=== PATIENT | female | born 1975 | race Caucasian/White ===

== ENCOUNTER 2020-01-20 13:48 | Outpatient (CLI) | payer OTHER ==
[2020-03-08] MEDS ORDERED: CHILDREN'S ASPI81 MG PO (11:09)
== END 2020-01-20 14:01 | disposition home or self-care (01) ==
LOC: NUCLEAR 13:48
PROVIDERS: ATTEND Urology
DX: Q62.11 Congenital occlusion of ureteropelvic junction (principal)
CPT/HCPCS: 78708; A9539; J1940

== ENCOUNTER 2020-03-15 06:00 | Day surgery (SDC) | payer OTHER ==
[~2020-03-15 06:00] MED LIST: CHILDREN'S ASPI81 MG PO
== END 2020-03-15 17:50 | disposition home or self-care (01) ==
LOC: CIR.AMB 06:00
PROVIDERS: ATTEND Urology
DX: N13.2 Hydronephrosis with renal and ureteral calculous obstruction (principal); Z20.828 Contact with and (suspected) exposure to other viral communicable diseases

== ENCOUNTER 2020-10-14 08:59 | Outpatient (CLI) | payer OTHER | END 2020-10-14 09:01 | disposition home or self-care (01) | LOC: NUCLEAR 08:59 | PROVIDERS: ATTEND Urology | DX: Q62.11 Congenital occlusion of ureteropelvic junction (principal) | CPT/HCPCS: 78707; A4641; J1940 ==

== ENCOUNTER 2020-12-03 05:02 | Day surgery (SDC) | payer OTHER ==
[~2020-12-03] VITALS: Ht 165.1 cm; Wt 68.0 kg
[2020-12-03] MEDS ORDERED: LEVOFLOXACIN500 MG (05:17)
[2020-12-03] MEDS ORDERED: NOXIFOL-D32500 UNIT (05:17)
== END 2020-12-03 18:40 | disposition home or self-care (01) ==
LOC: ER 05:02 → CIR.AMB 07:39
PROVIDERS: ATTEND Urology
DX: N13.1 Hydronephrosis with ureteral stricture, not elsewhere classified (principal); Z20.822 Contact with and (suspected) exposure to COVID-19

== ENCOUNTER 2021-06-16 13:05 | Outpatient (CLI) | payer OTHER ==
[~2021-06-16 13:05] MED LIST changes: +LEVOFLOXACIN500 MG; +NOXIFOL-D32500 UNIT
== END 2021-06-16 13:06 | disposition home or self-care (01) ==
LOC: NUCLEAR 13:05
PROVIDERS: ATTEND Urology
DX: Q62.11 Congenital occlusion of ureteropelvic junction (principal)
CPT/HCPCS: 78708; A9539

== ENCOUNTER 2022-03-22 10:02 | Outpatient (CLI) | payer OTHER | END 2022-03-22 10:03 | disposition home or self-care (01) | LOC: NUCLEAR 10:02 | PROVIDERS: ATTEND Urology | DX: N13.1 Hydronephrosis with ureteral stricture, not elsewhere classified (principal) | CPT/HCPCS: 78708; A9539; J1940 ==